=== PATIENT | female | born 1965 | race Caucasian/White ===

== ENCOUNTER 2024-10-21 03:51 | Day surgery (SDC) | payer BC, OTHER ==
[2024-10-16 15:09] VITALS: BMI 36.4
[2024-10-21] MEDS ORDERED: oxyCODONE HCL 5 MG TABLET PO PRN (07:55)
[2024-10-21] MEDS ORDERED: ONDANSETRON 4 MG/2 ML VIAL IVPUSH PRN (07:55)
[2024-10-21] MEDS ORDERED: LACTATED RINGERS SOLUTION 1,000 ML IV SCH (08:00)
[2024-10-21] MEDS ORDERED: PROPOFOL 20 ML ONE (11:07)
[2024-10-21] MEDS ORDERED: MIDAZOLAM HCL 2 MG/2 ML SINGLE DOSE VIAL ONE (11:07)
[2024-10-21] MEDS ORDERED: ACETAMINOPHEN 325 MG TABLET (FP) PO PRN (11:08)
[2024-10-21] MEDS ORDERED: DEXAMETHASONE SOD PHOSPHATE 4 MG/1 ML VIAL ONE (11:08)
[2024-10-21] MEDS ORDERED: IBUPROFEN 400 MG TABLET (FP) PO PRN (11:08)
[2024-10-21] MEDS ORDERED: LIDOCAINE HCL/PF 2% SDV 5ML VIAL ONE (11:08)
[2024-10-21] MEDS ORDERED: ONDANSETRON 4 MG/2 ML VIAL ONE (11:08)
[2024-10-21 15:13] VITALS: RESP 18
[2024-10-21 15:17] VITALS: BP 121/60; PULSE 89; TEMP 97.7
== END 2024-10-21 14:44 | disposition home or self-care (01) ==
LOC: JASU-SURG 03:51
PROVIDERS: ATTEND Obstetrics & Gynecology
PROC: 0UB98ZZ Excision of Uterus, Via Natural or Artificial Opening Endoscopic (ICD-10-PCS; principal; 2024-10-21 10:00)
DX: N95.0 Postmenopausal bleeding (principal); D25.0 Submucous leiomyoma of uterus; N84.0 Polyp of corpus uteri
CPT/HCPCS: 86850; 86900; 86901; 88305-TC; 94760